=== PATIENT | female | born 1955 | race Caucasian/White ===

== ENCOUNTER → 2017-04-03 | Outpatient (CLI) | payer BC ==
--- NOTE | 2017-04-04 17:06 | XCELERA REPORT ---
[address] [address] Lower Extremity Arterial Evaluation Name: KASIA VARGAS Age: 61 yrs Gender: Female : 1955 Patient Status: Outpatient Patient Location: Study Date: 04/03/2017 01:51 PM Procedure: A color flow and duplex scan of the lower extremity arteries was performed bilaterally with velocity and waveform anaylsis. Ankle brachial indicies performed. Reason For Study: PAD Ordering Physician: LAYTON TORRES Performed By: Linette Ortiz Measurements and Calculations Right Left SUPERVISOR [employer] PSV 120.1 112.5 cm/sec Prox PFA PSV -86.0 -66.8 cm/sec Prox SFA PSV -105.9 94.7 cm/sec Mid SFA PSV -111.4 -118.3 cm/sec Dist SFA PSV -89.6 -100.4 cm/sec Prox Pop A PSV 78.6 66.9 cm/sec Dist HERLINDA PSV 70.7 67.6 cm/sec Prox GROUP THERAPY COUNSELOR PSV 60.3 cm/sec Mid GROUP THERAPY COUNSELOR PSV 41.8 cm/sec Dist GROUP THERAPY COUNSELOR PSV 27.1 93.9 cm/sec Dist Beto A PSV 55.3 cm/sec Mookie Pedis PSV 24.4 53.6 cm/sec Right Side Arterial Evaluation Normal velocity and triphasic waveforms noted from the Common Femoral artery to the Anterior Tibial artery. Biphasic in the Dorsalis Pedis and Posterior Tibial artery. 0-19% stenosis at the PT and DP. Ankle Brachial index is 1.01. Left Side Arterial Evaluation Normal velocity and triphasic waveforms noted from the Common Femoral artery to the Anterior Tibial artery. Biphasic in the Dorsalis Pedis and Posterior Tibial artery. 0-19% stenosis at the PT and DP. Ankle Brachial index is 1.01. Interpretation Summary Mild hemodynamically significant lesions in the bilateral lower extremities, on duplex imaging, at rest. : LAYTON TORRES > Dani Moses
== END ==
LOC: SP 13:46
PROVIDERS: ATTEND Preventive Medicine Undersea and Hyperbaric Medicine
DX: I70.25 Atherosclerosis of native arteries of other extremities with ulceration (principal)
CPT/HCPCS: 93925

== ENCOUNTER 2018-10-06 12:05 | Emergency (ER) | payer BC, MEDICARE ==
--- NOTE | 2018-10-06 12:37 | ER Document Report ---
ED Medical Screen (RME) - General Chief Complaint: Altered Mental Status Stated Complaint: SLURRED SPEECH,LEFT PELVIC PAIN Time Seen by Provider: 10/06/18 12:33 Notes: 63-year-old female brought to the emergency department for increasing altered mental status. Patient has been following up with a neurologist for dementia versus Parkinson's disease. Saw the neurologist on Saturday. Has an MRI ordered for next week. Family states that overnight she has not been eating or drinking , not ambulating, and her mental status has progressively declined. I have greeted and performed a rapid initial assessment of this patient. A comprehensive ED assessment and evaluation of the patient, analysis of test results and completion of the medical decision making process will be conducted by additional ED providers. PHYSICAL EXAMINATION: GENERAL: Ill appearing. HEAD: Black eye Left. EYES: Pupils equal round extraocular movements intact, conjunctiva are normal. ENT: Nares patent NECK: Normal range of motion LUNGS: No respiratory distress Musculoskeletal: Normal range of motion SKIN: Warm, Dry, normal turgor, no rashes or lesions noted. TRAVEL OUTSIDE OF THE [place] IN LAST 30 DAYS: No [facility]TRY [facility] - Related Data Allergies/Adverse Reactions: latex Allergy (Mild, Verified 10/06/18 12:06) RASH Past Medical History - Social History Frequency of alcohol use: None Drug Abuse: None - Past Medical History Cardiac Medical History: Reports: Hx Hypercholesterolemia, Hx Hypertension Denies: Hx Coronary Artery Disease, Hx Heart Attack Pulmonary Medical History: Denies: Hx Asthma, Hx Bronchitis, Hx COPD, Hx Pneumonia Neurological Medical History: Denies: Hx Cerebrovascular Accident, Hx Seizures Renal/ Medical History: Denies: Hx Peritoneal Dialysis Musculoskeltal Medical History: 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
[2018-10-06 13:08] LABS: ABSOLUTE BASOPHILS # (AUTO) 0.1 10^3/uL (0.0-0.2); ABSOLUTE LYMPHOCYTES (AUTO) 0.5 10^3/uL (0.5-4.7); ABSOLUTE MONOCYTES (AUTO) 0.5 10^3/uL (0.1-1.4); ABSOLUTE NEUT (AUTO) 5.9 10^3/uL (1.7-8.2); BASOPHILS % (AUTO) 0.8 % (0-2); EOSINOPHILS % (AUTO) 0.1 % (0-6); HEMATOCRIT 35.9 % (36.0-47.0); LYMPHOCYTES % (AUTO) 6.7 % (13-45); MEAN CORPUSCULAR HEMOGLOBIN 32.3 pg (27.0-33.4); MEAN CORPUSCULAR HGB CONC 36.2 g/dL (32.0-36.0); MEAN CORPUSCULAR VOLUME 89 fl (80-97); MONOCYTES % (AUTO) 7.4 % (3-13); PLATELET COUNT 310 10^3/uL (150-450); RED BLOOD COUNT 4.03 10^6/uL (3.72-5.28); RED CELL DISTRIBUTION WIDTH 12.4 % (11.5-14.0); TOTAL CELLS COUNTED % (AUTO) 100 %
--- NOTE | 2018-10-06 13:14 | ER Document Report ---
ED General - General Mode of Arrival: Medic Information source: Relative Cannot obtain history due to: Dementia TRAVEL OUTSIDE OF THE [place] IN LAST 30 DAYS: No COUNTRY TRAVELED TO/FROM: [facility] <TEJA JARVIS - Last Filed: 10/06/18 13:15> <CEASAR BURKS - Last Filed: 10/06/18 17:10> - General Chief Complaint: Altered Mental Status Stated Complaint: SLURRED SPEECH,LEFT PELVIC PAIN Time Seen by Provider: 10/06/18 12:33 Notes: 63-year-old female who presents to the emergency department today with complaints of altered mental status. at bedside states that the patient was diagnosed with "white matter disease" about 1 year ago. Patient had a head CT at that time due to increasing forgetfulness according to family. Family at bedside states that the patient was functioning normally at that time with intermittent episodes of forgetfulness. states that about 3 weeks ago the patient became "unable to function". Family also mentions that the patient was found to have a fractured pelvis [address] scan but it is not clear when the patient fractured her pelvis or why she had CT scan performed. Family states for the last 2 weeks the patient has not been getting out of bed, has had urinary incontinence, and is not eating or drinking. Patient is demented. (TEJA JARVIS) - Related Data Allergies/Adverse Reactions: latex Allergy (Mild, Verified 10/06/18 12:06) RASH Past Medical History - General Information source: Relative, [facility] Records Cannot obtain history due to: Dementia - Social History Smoking Status: Former Smoker Cigarette use (# per day): No Frequency of alcohol use: None Drug Abuse: None Family History: Arthritis, Malignancy Patient has suicidal ideation: No Patient has homicidal ideation: No - Past Medical History Cardiac Medical History: Reports: Hx Hypercholesterolemia, Hx Hypertension, Other - AAA Musculoskeletal Medical History: 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 Skin Medical History: Reports Hx Cellulitis Psychiatric Medical History: Reports: Hx Anxiety, Hx Dementia, Hx Depression Past Surgical History: Reports: Hx Breast Surgery - bx, Hx Section, Hx Tubal Ligation, Other - AAA endovascular stent - Immunizations Hx Diphtheria, Pertussis, Tetanus Vaccination: Yes <TEJA JARVIS - Last Filed: 10/06/18 13:15> Review of Systems - Review of Systems -: Yes ROS unobtainable due to patient's medical condition <TEJA JARVIS - Last Filed: 10/06/18 13:15> Physical Exam <TEJA JARVIS - Last Filed: 10/06/18 13:15> <CEASAR BURKS - Last Filed: 10/06/18 17:10> - Vital signs Vitals: Pulse Ox 98 10/06/18 13:01 - Notes Notes: Physical Exam: General: Appears demented, tremor, picks at things with bilateral hands including lifting up and down the sheet. HEENT: Normocephalic. Atraumatic. PERRL. Extraocular movements intact. Oropharynx clear. Dry mucous membranes. No cartoid bruits. Neck: Supple. Non-tender. Respiratory: No respiratory distress. Clear and equal breath sounds bilaterally. Cardiovascular: Regular rate and rhythm. Abdominal: Large firm mass consistent with diagnosed AAA with endovascular stent. Non-tender. No distension. Normal Bowel Sounds. Back: Non-tender. No deformity or step off. Extremities: Moves all four extremities. Upper extremities: Normal inspection. Normal ROM. Lower extremities: Normal inspection. No edema. Normal ROM. Neurological: Demented Psychological: Unable to assess Skin: Warm. Dry. Normal color. (TEJA JARVIS) Course - Laboratory Result Diagrams: 10/06/18 12:57 10/06/18 12:57 <TEJA JARVIS - Last Filed: 10/06/18 13:15> - Laboratory Result Diagrams: 10/06/18 12:57 10/06/18 12:57 - Diagnostic Test Radiology reviewed: Image reviewed, Reports reviewed - CT scan shows mild microvascular ischemic changes with chronic atrophy. Nothing acute. CXR does not show any acute process. - EKG Interpretation by Ks EKG shows normal: Sinus rhythm Rate: Tachycardia - 106 Rhythm: APC's [place]/QRS: Right axis deviation Voltage: Consistant with LVH When compared to previous EKG there are: No significant change - Consults Dr. Jaimes Time consulted: 16:50 Consulted provider: other - Will accept at [facility]. - Transfer of Care Care transferred to following provider: Dr. Verma <CEASAR BURKS - Last Filed: 10/06/18 17:10> - Re-evaluation Re-evalutation: 10/06/18 14:20 CT scan of the head does not show any acute process or significant microvascular ischemic changes. Chest x-ray is unremarkable. CBC, Chem-12, cardiac enzymes, and urinalysis are all unremarkable. 10/06/18 14:33 I was just called to the room by the nurse caring for the patient stating that she had blood coming from saliva in her mouth. When I entered the room the patient was actively seizing with her head turned to the left her eyes deviated to the left and her arm showing posturing. Her teeth were clenched. She had snoring type respirations. Her spouse reported that all of this started only 1- 2 minutes earlier. 10/06/18 16:56 At this time the patient continues to be postictal. Her blood pressure has risen to the 210-220 systolic range. This was confirmed with a manual cuff. Reviewing her pharmacy records, she is supposed to take metoprolol 50 mg daily and Dyazide 75/50. Her BUN is elevated to 22, and by history she has not been eating or drinking. She will be given a liter of normal saline IV, and 2.5 mg of metoprolol IV. (CEASAR BURKS) - Vital Signs Vital signs: Temp Pulse Resp BP Pulse Ox 20 210/120 H 100 10/06/18 16:39 10/06/18 17:06 10/06/18 15:00 - Laboratory Laboratory results interpreted by me: 10/06/18 10/06/18 10/06/18 12:57 12:57 13:07 Hct 35.9 L MCHC 36.2 H Seg Neutrophils % 85.0 H Lymphocytes % 6.7 L Chloride 93 L Carbon Dioxide 32 H BUN 22 H Glucose 114 H Alkaline Phosphatase 229 H Urine Protein 100 H Urine Ketones 20 H Urine Urobilinogen 4.0 H - Transfer of Care Notes: 10/06/18 17:09 Patient is pending transfer to [facility]. She may need additional doses of metoprolol depending on how well her blood pressure responds. (CEASAR BURKS) Critical Care Note - Critical Care Note Total time excluding time spent on procedures (mins): 50 <CEASAR BURKS - Last Filed: 10/06/18 17:10> Discharge <TEJA JARVIS - Last Filed: 10/06/18 13:15> <CEASAR BURKS - Last Filed: 10/06/18 17:10> - Discharge Clinical Impression: Declining functional status, Seizure Altered mental status Qualifiers: Altered mental status type: unspecified Qualified Code(s): R41.82 - Altered mental status, unspecified Dementia Qualifiers: Dementia type: unspecified type Dementia behavioral disturbance: without behavioral disturbance Qualified Code(s): F03.90 - Unspecified dementia without behavioral disturbance High blood pressure Qualifiers: Hypertension type: essential hypertension Qualified Code(s): I10 - Essential ( primary) hypertension Condition: Stable Referrals: LAYTON TORRES DPM [Primary Care Provider] - Follow up as needed Scribe Attestation: 10/06/18 17:10 I personally performed the services described in the documentation, reviewed and edited the documentation which was dictated to the scribe in my presence, and it accurately records my words and actions. (CEASAR BURKS) Scribe Documentation - Scribe Written by Scribe:: Jacqueline Crook, 10/06/2018 1328 acting as scribe for :: Kaylin <TEJA JARVIS - Last Filed: 10/06/18 13:15>
[2018-10-06 13:24] LABS: ALANINE AMINOTRANSFERASE 32 U/L (9-52); ALBUMIN 4.2 g/dL (3.5-5.0); ALKALINE PHOSPHATASE 229 U/L (38-126); ANION GAP 14 (5-19); ASPARTATE AMINO TRANSFERASE 34 U/L (14-36); BILIRUBIN,DIRECT 0.3 mg/dL (0.0-0.4); BILIRUBIN,TOTAL 1.1 mg/dL (0.2-1.3); BLOOD UREA NITROGEN 22 mg/dL (7-20); CALCIUM 9.8 mg/dL (8.4-10.2); CARBON DIOXIDE 32 mmol/L (22-30); CHLORIDE 93 mmol/L (98-107); GLUCOSE 114 mg/dL (75-110); POTASSIUM 3.8 mmol/L (3.6-5.0); SODIUM 139.4 mmol/L (137-145); TOTAL PROTEIN 7.2 g/dL (6.3-8.2)
--- NOTE | 2018-10-06 13:41 | RADIOLOGY REPORT (SQ) ---
EXAM DESCRIPTION: CHEST SINGLE VIEW COMPLETED DATE/TIME: 10/06/2018 1:33 pm REASON FOR STUDY: altered mental status COMPARISON: 10/03/2016. EXAM PARAMETERS: NUMBER OF VIEWS: One view. TECHNIQUE: Single frontal radiographic view of the chest acquired. RADIATION DOSE: NA LIMITATIONS: None. FINDINGS: LUNGS AND PLEURA: No opacities, masses or pneumothorax. No pleural effusion. MEDIASTINUM AND HILAR STRUCTURES: No masses. Contour normal. HEART AND VASCULAR STRUCTURES: Heart normal in size. Normal vasculature. BONES: No acute findings. Degenerative changes in the shoulders. HARDWARE: None in the chest. OTHER: No other significant finding. IMPRESSION: NO ACUTE RADIOGRAPHIC FINDING IN THE CHEST. TECHNICAL DOCUMENTATION: JOB ID: [id number] [employer]- All Rights Reserved Reading location - IP/workstation name: [email or web address]
[2018-10-06 13:45] LABS: APPEARANCE,URINE SLIGHTLY-CLOUDY; BILIRUBIN,URINE NEGATIVE (NEGATIVE); COLOR,URINE YELLOW; GLUCOSE, URINE NEGATIVE (NEGATIVE); KETONES,URINE 20 mg/dL (NEGATIVE); LEUKOCYTE ESTERASE,URINE NEGATIVE (NEGATIVE); NITRITE,URINE NEGATIVE (NEGATIVE); PROTEIN,URINE 100 mg/dL (NEGATIVE); URINE SPECIFIC GRAVITY 1.018
--- NOTE | 2018-10-06 13:46 | RADIOLOGY REPORT (SQ) ---
EXAM DESCRIPTION: CT HEAD WITHOUT COMPLETED DATE/TIME: 10/06/2018 1:38 pm REASON FOR STUDY: ams COMPARISON: 10/03/2016. TECHNIQUE: Axial images acquired through the brain without intravenous contrast. Images reviewed wi th bone, brain and subdural windows. Additional sagittal and coronal reconstructions were generated. Images stored on PACS. All CT scanners at this facility use dose modulation, iterative reconstruction, and/or weight based d osing when appropriate to reduce radiation dose to as low as reasonably achievable (ALARA). [facility]: Dose Right [facility]: CareDose [facility]: Dose Right [facility]: Teradose 4D [facility]: YAZUO RADIATION DOSE: CT Rad equipment meets quality standard of care and radiation dose reduction techniq ues were employed. CTDIvol: 53.2 mGy. DLP: 1070 mGy-cm. mGy. LIMITATIONS: None. FINDINGS: VENTRICLES: Prominent. CEREBRUM: No masses. No hemorrhage. No midline shift. Areas of low density in the white matter mos t likely due to chronic micro-vascular ischemic change. No evidence for acute infarction. CEREBELLUM: No masses. No hemorrhage. No alteration of density. No evidence for acute infarction. EXTRAAXIAL SPACES: Mild age-related involutional change. No fluid collections. No masses. ORBITS AND GLOBE: No intra- or extraconal masses. Normal contour of globe without masses. CALVARIUM: No fracture. PARANASAL SINUSES: No fluid or mucosal thickening. SOFT TISSUES: No mass or hematoma. OTHER: No other significant finding. IMPRESSION: MILD CHRONIC CHANGES OF ATROPHY AND MICROVASCULAR ISCHEMIA. NO ACUTE PROCESS. EVIDENCE OF ACUTE STROKE: NO. TECHNICAL DOCUMENTATION: JOB ID: [id number] Quality ID # [id number]: Final reports with documentation of one or more dose reduction techniques (e.g., Au tomated exposure control, adjustment of the mA and/or kV according to patient size, use of iterative reconstruction technique) 2010 [employer]- All Rights Reserved Reading location - IP/workstation name: [email or web address]
[2018-10-06] MEDS ORDERED: LORAZEPAM INJ 2 MG/1 ML VIAL IV ONE (14:30)
[2018-10-06] MEDS ORDERED: LORAZEPAM INJ 2 MG/1 ML VIAL ONE (14:32)
[2018-10-06 15:26] LABS: URINE AMPHETAMINES SCREEN NEGATIVE; URINE BARBITURATES SCREEN NEGATIVE; URINE BENZODIAZEPINES SCREEN NEGATIVE; URINE COCAINE SCREEN NEGATIVE; URINE MARIJUANA (THC) SCREEN NEGATIVE; URINE METHADONE SCREEN NEGATIVE; URINE PHENCYCLIDINE SCREEN NEGATIVE
[2018-10-06] MEDS ORDERED: LEVETIRACETAM 1000 MG/NACL-ISO 1,000 MG/100 ML RTUPB IV ONE (16:28)
[2018-10-06] MEDS ORDERED: NORMAL SALINE 1000 ML 1,000 ML IV ONE (16:34)
[2018-10-06] MEDS ORDERED: METOPROLOL TARTRATE PF/INJ 5 MG/5 ML SDV IV ONE (17:06)
[2018-10-06 18:36] VITALS: BP 143/84
--- NOTE | 2018-10-06 18:37 | EKG REPORT ---
SEVERITY:- ABNORMAL ECG - SINUS TACHYCARDIA BORDERLINE RIGHT AXIS DEVIATION CONSIDER LEFT VENTRICULAR HYPERTROPHY REPOL ABNRM SUGGESTS ISCHEMIA, DIFFUSE LEADS : Confirmed by: Florian Ramirez MD 06-Oct-2018 18:37:11
== END 2018-10-06 18:36 | disposition short-term general hospital (02) ==
LOC: ER 12:05
DX: R56.9 Unspecified convulsions (principal); F03.90 Unspecified dementia, unspecified severity, without behavioral disturbance, psychotic disturbance, mood disturbance, and anxiety; R41.82 Altered mental status, unspecified; I10 Essential (primary) hypertension; Z74.09 Other reduced mobility; R47.81 Slurred speech; R90.82 White matter disease, unspecified; R10.2 Pelvic and perineal pain; Z87.81 Personal history of (healed) traumatic fracture; Z87.891 Personal history of nicotine dependence
CPT/HCPCS: 93005; 99291; 96361; 51701; 96375; 96365; 36415; 87040; 83735; 85025; 80053; 81001; 84484; 80307; 83605; 71045; 70450; 93010; J3490; J2060; J7030; J1953